=== PATIENT | female | born 1955 | race Caucasian/White ===

== ENCOUNTER → 2016-05-19 | Outpatient (CLI) | payer BC, OTHER ==
[~2016-05-19] MED LIST: ASCO-294 PO; ASPI-557 PO; CALC-52 PO; CELE200C PO; ERGO400C PO; FISH1CAP29 PO; FURO20TA4 PO; GUAI120015 PO; ISOS30TA6 PO; LEVO500T63 PO; METF500T PO; PRED5TAB PO; VITA200C63 PO
[2016-05-19 09:17] LABS: BASOPHILS % (AUTO) 0.6 % (0-2); EOSINOPHILS # (AUTO) 0.4 T/MM3 (0-0.5); EOSINOPHILS % (AUTO) 5.2 % (0-4); HCT - HEMATOCRIT 37.9 % (36-46); HGB - HEMOGLOBIN 12.5 GM/DL (12-16); IMMATURE GRANULOCYTE # (AUTO) 0.01 T/MM3 (0.00-0.03); IMMATURE GRANULOCYTE % (AUTO) 0.1 % (0.0-0.5); LYMPHOCYTES # (AUTO) 1.5 T/MM3 (1-4.8); LYMPHOCYTES % (AUTO) 22.8 % (23-45); MEAN CORPUSCULAR HGB 31.5 UUG (26-34); MEAN CORPUSCULAR VOLUME 95.5 UM3 (80-100); MONOCYTES # (AUTO) 0.4 T/MM3 (0-0.8); MONOCYTES % (AUTO) 6.5 % (0-9.0); NEUTROPHILS #(AUTO)-ABSOLUTE 4.4 T/MM3 (1.8-7.7); NEUTROPHILS % (AUTO) 64.8 % (33-66); RED BLOOD COUNT 3.97 M/MM3 (4.00-5.20); WBC - WHITE BLOOD COUNT 6.8 T/MM3 (4.5-11.0)
[2016-05-19 09:27] LABS: ALBUMIN 4.1 G/DL (3.5-5.0); ALBUMIN/GLOBULIN RATIO 1.5 RATIO (1.1-2.2); ALKALINE PHOSPHATASE 46 U/L (38-126); ALT (SGPT) 39 U/L (9-52); ANION GAP 10 MEQ/L (5-15); AST (SGOT) 29 U/L (14-36); BUN/CREATININE RATIO 26 RATIO (6-26); CALCIUM 9.4 MG/DL (8.4-10.2); CHLORIDE 103 MEQ/L (98-107); CO2 - CARBON DIOXIDE 29 MEQ/L (22-30); CREATININE 0.8 MG/DL (0.7-1.2); GLOMERULAR FILTRATION RATE 72; GLUCOSE 108 MG/DL (65-110); POTASSIUM 4.8 MEQ/L (3.6-5); SODIUM 142 MEQ/L (134-144); TOTAL PROTEIN 6.8 G/DL (6.3-8.2)
[2016-05-19 09:32] LABS: HEMOGLOBIN A1C 6.2 % (6.1-7.9)
== END ==
LOC: LAB 09:05
PROVIDERS: ATTEND Internal Medicine
DX: E11.9 Type 2 diabetes mellitus without complications (principal)
CPT/HCPCS: 36415; 80053; 83036; 85025